=== PATIENT | female | born 1970 | race African-American/Black ===

== ENCOUNTER 2016-11-15 16:16 | Emergency (ER) | payer BC, OTHER ==
[2016-11-15 16:23] VITALS: BP 127/81; PULSE 70; TEMP 97.8; BMI 25.8
[2016-11-15] MEDS ORDERED: KETOROLAC TROMETHAMINE 60 MG/2 ML VIAL IM ONE (17:59)
[2016-11-15] MEDS ORDERED: KETOROLAC TROMETHAMINE 60 MG/2 ML VIAL ONE (18:01)
--- NOTE | 2016-11-15 18:03 | PDOC ---
History of Present Illness - General Chief Complaint: Pain Stated Complaint: PAIN Time Seen by Provider: 11/15/16 17:20 History Source: Patient Exam Limitations: No Limitations - History of Present Illness Initial Comments: 11/15/16 18:04 My Chief Complaint: rt. arm lower and upper for 4 days History of present illness: She is a 46-year-old female with no significant medical problems here today complaining of right medial forearm and upper arm pain 4 days with movement. 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 Patient went to work today patient has been putting Madi wrap on her arm forearm and upper arm. Patient denies any numbness of her right arm or hand. Patient has been taking ibuprofen without relief of pain last took yesterday. Patient is requesting something for pain presently. 11/15/16 18:07 Timing/Duration: intermittent Severity: moderate Modifying Factors: improves with: immobilization Associated Symptoms: reports: other Past History - Past Medical History Allergies/Adverse Reactions: Allergies Allergy/AdvReac Type Severity Reaction Status Date / Time No Known Allergies Allergy Verified 11/15/16 16:20 Home Medications: Ambulatory Orders NK [No Known Home Medication] 11/15/16 - Psycho/Social/Smoking Cessation Hx Anxiety: No Suicidal Ideation: No Smoking History: Never smoked Have you smoked in the past 12 months: No Information on smoking cessation initiated: No Hx Alcohol Use: No Drug/Substance Use Hx: No Substance Use Type: None Review of Systems - Review of Systems Able to Perform ROS?: Yes Constitutional: No: Symptoms Reported HEENTM: No: Symptoms Reported Respiratory: No: Symptoms reported Cardiac (ROS): No: Symptoms Reported ABD/GI: No: Symptoms Reported : No: Symptoms Reported Musculoskeletal: Yes: Muscle Pain (rt. medial upper arm, rt. forearm) Integumentary: No: Symptoms Reported Neurological: No: Symptoms reported *Physical Exam - Vital Signs Last Vital Signs Temp Pulse Resp BP Pulse Ox 97.8 F 70 18 127/81 100 11/15/16 16:21 11/15/16 16:21 11/15/16 16:21 11/15/16 16:21 11/15/16 16:21 - Physical Exam General Appearance: Yes: Appropriately Dressed Respiratory/Chest: positive: Lungs Clear, Normal Breath Sounds. negative: Chest Tender, Respiratory Distress Cardiovascular: positive: Regular Rhythm, Regular Rate, S1, S2 Comments:: 11/15/16 18:01 radial pulse 4 + rt Extremity: positive: Normal Capillary Refill, Normal Inspection, Normal Range of Motion (rt. shoulder, elbow, wrist and all digits) Integumentary: positive: Normal Color Neurologic: positive: Normal Response, Motor Strength 5/5 (rt. arm ), Respond to painful stimul (rt. forearm, rt. upper arm ) Medical Decision Making - Medical Decision Making 11/15/16 18:07 She is a 46-year-old female with no significant medical problems here today complaining of right medial forearm and upper arm pain 4 days with movement. 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 Patient went to work today patient has been putting Madi wrap on her arm forearm and upper arm. Patient denies any numbness of her right arm or hand. Patient has been taking ibuprofen without relief of pain last took yesterday. Patient is requesting something for pain presently. Rt. forearm and upper arm strain PLAN: toradol 60 mg IM now naprosyn 500 mg bid prn pain # 14 tabs follow up with orthopedist *DC/Admit/Observation/Transfer Diagnosis at time of Disposition: Strain of right forearm Qualifiers: Encounter type: initial encounter Qualified Code(s): S56.911A - Strain of unspecified muscles, fascia and tendons at forearm level, right arm, initial encounter Strain of upper arm, right Qualifiers: Encounter type: initial encounter Qualified Code(s): S46.911A - Strain of unspecified muscle, fascia and tendon at shoulder and upper arm level, right arm , initial encounter - Discharge Dispostion Disposition: HOME Condition at time of disposition: Stable - Referrals Referrals: STAFF,NOT ON [Primary Care Provider] - Carlos Manuel Mckeon MD [Staff Physician] - - Patient Instructions Additional Instructions: Avoid strenuous activities or exercise using your right arm Do not take any ibuprofen or Aleve, Advil when taking Naprosyn a take acetaminophen as directed by fur cleaner return to emergency room Return to emergency room if symptoms worsen or new symptoms develop Follow-up with orthopedist Patient voiced understanding of discharge instructions and all questions were answered
== END 2016-11-15 18:23 | disposition home or self-care (01) ==
LOC: JERFT 16:16
PROC: 3E0233Z Introduction of Anti-inflammatory into Muscle, Percutaneous Approach (ICD-10-PCS; principal; 2016-11-15)
DX: S46.911A Strain of unspecified muscle, fascia and tendon at shoulder and upper arm level, right arm, initial encounter (principal); S56.911A Strain of unspecified muscles, fascia and tendons at forearm level, right arm, initial encounter; X50.0XXA Overexertion from strenuous movement or load, initial encounter; X50.9XXA Other and unspecified overexertion or strenuous movements or postures, initial encounter; X50.3XXA Overexertion from repetitive movements, initial encounter; Y93.B9 Activity, other involving muscle strengthening exercises; Y92.39 Other specified sports and athletic area as the place of occurrence of the external cause; Y99.0 Civilian activity done for income or pay
CPT/HCPCS: 99281-25

== ENCOUNTER 2019-04-20 10:44 | Emergency (ER) | payer OTHER, BC ==
[2019-04-20 10:56] VITALS: BP 125/84; PULSE 72; TEMP 98.3; BMI 26.6
[2019-04-20] MEDS ORDERED: KETOROLAC TROMETHAMINE 30 MG/1 ML VIAL IM ONE (11:39)
[2019-04-20] MEDS ORDERED: KETOROLAC TROMETHAMINE 30 MG/1 ML VIAL ONE (11:42)
--- NOTE | 2019-04-20 11:55 | PDOC ---
History of Present Illness - General Chief Complaint: Chronic pain Stated Complaint: SHOULDER PAIN / COLD SYMPTOMS Time Seen by Provider: 04/20/19 11:31 History Source: Patient Exam Limitations: No Limitations - History of Present Illness Initial Comments: 04/20/19 12:41 HISTORY OF PRESENT ILLNESS: 49-year-old woman denies medical history of presents to the emergency department for evaluation of atraumatic right shoulder pain which is worsened over the past 2 weeks. Patient reports the pain starts the superior aspect of the shoulder and shoots down her arm ending on the inside of the upper arm midway between the shoulder and elbow. Patient is unable to identify any alleviating or aggravating factors. Patient has tried taking Motrin and topical remedies for pain which have been unsuccessful. She denies any numbness or weakness in her arm. No recent travel or sick contacts. PAST MEDICAL HISTORY: Denies past medical history SURGICAL HISTORY: Denies ALLERGIES: No known drug allergies REVIEW OF SYSTEMS General/Constitutional: Denies fever or chills. Denies weakness, weight change. HEENT: Denies change in vision. Denies ear pain or discharge. Denies sore throat. Cardiovascular: Denies chest pain or shortness of breath. Respiratory: Denies cough, wheezing, or hemoptysis. Gastrointestinal: Denies nausea, vomiting, diarrhea or constipation. Denies rectal bleeding. Genitourinary: Denies dysuria, frequency, or change in urination. Musculoskeletal: See HPI Skin and breasts: Denies rash or easy bruising. Neurologic: Denies headache, vertigo, loss of consciousness, or loss of sensation. Psychiatric: Denies depression or anxiety. Endocrine: Denies increased thirst. Denies abnormal weight change. Hematologic/Lymphatic: Denies anemia, easy bleeding, or history of blood clots. Allergic/Immunologic: Denies hives or skin allergy. Denies latex allergy. PHYSICAL EXAM General Appearance: Well-appearing, appropriately dressed. No apparent distress , no intoxication. Respiratory/Chest: Lungs CTAB. No shortness of breath, chest tenderness, respiratory distress, accessory muscle use. No crackles, rales, rhonchi, stridor , wheezing, dullness Cardiovascular: RRR. S1, S2. No JVD, murmur, bradycardia, tachycardia. Gastrointestinal/Abdominal: Normal bowel sounds. Abdomen soft, non-distended. No tenderness or rebound tenderness. No organomegaly, pulsatile mass, guarding, hernia, hepatomegaly, splenomegaly. Musculoskeletal/Extremities: Normal inspection. FROM of all extremities, normal capillary refill. Pelvis Stable. No CVA tenderness. No tenderness to extremities, pedal edema, swelling, erythema or deformity. Past History - Past Medical History Allergies/Adverse Reactions: Allergies Allergy/AdvReac Type Severity Reaction Status Date / Time No Known Allergies Allergy Verified 04/20/19 10:54 Home Medications: Ambulatory Orders Naproxen [Naprosyn -] 500 mg PO BID PRN #14 tablet 11/15/16 Methylprednisolone [Medrol Dose Avni] 4 mg PO ASDIR #21 tablet 04/20/19 COPD: No - Psycho Social/Smoking Cessation Hx Smoking History: Never smoked Have you smoked in the past 12 months: No Hx Alcohol Use: No Drug/Substance Use Hx: No Substance Use Type: None *Physical Exam - Vital Signs Last Vital Signs Temp Pulse Resp BP Pulse Ox 98.3 F 72 18 125/84 100 04/20/19 10:54 04/20/19 10:54 04/20/19 10:54 04/20/19 10:54 04/20/19 10:54 Medical Decision Making - Medical Decision Making 04/20/19 12:27 A/P: 49-year-old woman atraumatic right shoulder pain Pain is likely radicular in etiology. Right shoulder x-ray to evaluate for structural anomalies X-rays read by me: No fractures or dislocations present. AC joint is well approximated. I will discharge patient home to follow-up with her primary doctor for continued evaluation. We will give a prescription for Medrol Dosepak for pain management so she can follow-up with her primary doctor. Discharge - Discharge Information Problems reviewed: Yes Clinical Impression/Diagnosis: Right shoulder pain Qualifiers: Chronicity: acute Qualified Code(s): M25.511 - Pain in right shoulder Condition: Fair Disposition: HOME - Admission No - Additional Discharge Information Prescriptions: Methylprednisolone [Medrol Dose Avni] 4 mg PO ASDIR #21 tablet - Follow up/Referral Referrals: Hang Pope [Primary Care Provider] - - Patient Discharge Instructions Additional Instructions: Take Tylenol or Motrin as needed for pain. Follow manufacturers instructions for appropriate dosage. Take Medrol Dosepak as directed. Your ER visit is not complete until you follow-up with your primary doctor. Return to emergency department for discoloration of the fingers, numbness or tingling to the fingers, worsening pain, or any other concerns. Thank you very much for choosing us to provide your emergent healthcare needs. - Post Discharge Activity
== END 2019-04-20 12:44 | disposition home or self-care (01) ==
LOC: JERFT 10:44
PROC: 3E0233Z Introduction of Anti-inflammatory into Muscle, Percutaneous Approach (ICD-10-PCS; principal; 2019-04-20)
DX: M25.511 Pain in right shoulder (principal)
CPT/HCPCS: 73030-TC-RT-FY; 99281-25